=== PATIENT | female | born 1945 | race Caucasian/White ===

== ENCOUNTER 2021-02-13 09:55 | Outpatient (CLI) | payer MEDICARE, OTHER | END 2021-02-13 09:56 | disposition home or self-care (01) | LOC: CSHMAMMO 09:55 | PROVIDERS: ATTEND Family Medicine | DX: Z12.31 Encounter for screening mammogram for malignant neoplasm of breast (principal) | CPT/HCPCS: 77063; 77067 ==

== ENCOUNTER 2022-07-17 10:57 | Outpatient (CLI) | payer MEDICARE, OTHER | END 2022-07-17 10:58 | disposition home or self-care (01) | LOC: CSHMAMMO 10:57 | PROVIDERS: ATTEND Family Medicine | DX: Z12.31 Encounter for screening mammogram for malignant neoplasm of breast (principal); Z91.89 Other specified personal risk factors, not elsewhere classified | CPT/HCPCS: 77063; 77067 ==

== ENCOUNTER 2023-09-07 11:23 | Outpatient (CLI) | payer MEDICARE, OTHER | END 2023-09-07 11:24 | disposition home or self-care (01) | LOC: CSHMAMMO 11:23 | PROVIDERS: ATTEND Family Medicine | DX: Z13.820 Encounter for screening for osteoporosis (principal); Z78.0 Asymptomatic menopausal state | CPT/HCPCS: 77080 ==

== ENCOUNTER 2023-12-26 13:12 | Emergency (ER) | payer MEDICARE ==
[2023-12-26] MEDS ORDERED: traMADol HCl 50 MG TAB ONE (15:32)
[2023-12-26] MEDS ORDERED: Boostrix 0.5 ML (Tdap) VIAL (>/=7 yrs of age) ONE (18:57)
== END 2023-12-26 19:08 | disposition home or self-care (01) ==
LOC: CSHERS 13:12
DX: S82.832A Other fracture of upper and lower end of left fibula, initial encounter for closed fracture (principal); S00.03XA Contusion of scalp, initial encounter; S90.812A Abrasion, left foot, initial encounter; R40.2410 Glasgow coma scale score 13-15, unspecified time; I10 Essential (primary) hypertension; I48.91 Unspecified atrial fibrillation; E78.5 Hyperlipidemia, unspecified; Z79.899 Other long term (current) drug therapy; Z79.01 Long term (current) use of anticoagulants; W18.30XA Fall on same level, unspecified, initial encounter
CPT/HCPCS: 70450; 90471; 90715

== ENCOUNTER 2024-01-06 16:45 | Emergency (ER) | payer MEDICARE ==
[2024-01-06 17:51] LABS: #Basophils 0.1 10x3/uL (0.0-0.2); #Eosinphils 0.2 10x3/uL (0.0-0.5); #Monocytes 0.8 10x3/uL (0.0-1.1); #Neutrophils 5.6 10x3/uL (1.5-8.4); %Basophils 0.7 % (0.0-2.0); %Eosinophils 1.8 % (0.0-6.0); %Lymphocytes 21.5 % (18.0-47.0); %Monocytes 9.5 % (0.0-10.0); %Neutrophils 65.6 % (40.0-75.0); Hematocrit 37.7 % (34.9-44.5); Hemoglobin 13.2 g/dL (12.0-15.5); Mean Corpuscular Hemoglobin 35.6 pg (27.0-33.0); Mean Corpuscular Volume 101.6 fl (81.6-98.3); Mean Platelet Volume 10.9 fl (7.4-10.4); Platelet Count 364 10x3/uL (150-450); RBC Distribution Width 11.7 % (11.5-14.5); Red Blood Cell (RBC) Count 3.71 10x6/uL (3.90-5.03); White Blood Cell (WBC) Count 8.6 10x3/uL (3.5-10.5)
[2024-01-06 18:03] LABS: ALT (SGPT) 21 U/L (8-55); AST (SGOT) 25 U/L (5-34); Albumin 3.8 g/dL (3.4-4.8); Alkaline Phosphatase 64 U/L (40-110); Anion Gap 14 mmol/L (10-20); BUN (Urea Nitrogen) 27 mg/dL (9.8-20.1); Bilirubin, Total 0.6 mg/dL (0.2-1.2); Calc. Creatinine Clearance 0 mL/min (70-130); Calcium 9.5 mg/dL (7.8-10.44); Carbon Dioxide 24 mmol/L (23-31); Chloride 102 mmol/L (98-107); Estimated GFR 52; Globulin 3.1 g/dL (2.4-3.5); Glucose 111 mg/dL (83-110); Potassium 4.3 mmol/L (3.5-5.1); Protein, Total 6.9 g/dL (5.8-8.1); Sodium 136 mmol/L (136-145)
== END 2024-01-06 21:10 | disposition home or self-care (01) ==
LOC: CSHERS 16:45
DX: L89.629 Pressure ulcer of left heel, unspecified stage (principal); I10 Essential (primary) hypertension
CPT/HCPCS: 36415; 80053; 85025

== ENCOUNTER 2024-06-13 18:54 | Emergency (ER) | payer MEDICARE ==
[2024-06-13 22:35] LABS: #Basophils 0.05 10x3/uL (0.0-0.2); #Eosinphils 0.33 10x3/uL (0.0-0.5); #Monocytes 0.93 10x3/uL (0.0-1.1); #Neutrophils 4.92 10x3/uL (1.5-8.4); %Basophils 0.6 % (0.0-2.0); %Eosinophils 3.9 % (0.0-6.0); %Lymphocytes 25.6 % (18.0-47.0); %Monocytes 11.1 % (0.0-10.0); %Neutrophils 58.7 % (40.0-75.0); Hematocrit 38.3 % (34.9-44.5); Hemoglobin 12.8 g/dL (12.0-15.5); Mean Corpuscular HGB CONC 33.4 g/dL (32.0-36.0); Mean Corpuscular Hemoglobin 33.2 pg (27.0-33.0); Mean Corpuscular Volume 99.5 fL (81.6-98.3); Mean Platelet Volume 11.7 fL (7.4-10.4); Platelet Count 270 10x3/uL (150-450); RBC Distribution Width 12.9 % (11.5-14.5); Red Blood Cell (RBC) Count 3.85 10x6/uL (3.90-5.03); White Blood Cell (WBC) Count 8.4 10x3/uL (3.5-10.5)
[2024-06-13 22:40] LABS: Troponin I Less than 0.010 ng/mL (< 0.028)
== END 2024-06-13 23:58 | disposition home or self-care (01) ==
LOC: CSHERS 18:54
DX: R55 Syncope and collapse (principal); I10 Essential (primary) hypertension; I48.91 Unspecified atrial fibrillation; Z79.01 Long term (current) use of anticoagulants; Z79.899 Other long term (current) drug therapy
CPT/HCPCS: 83880; 84484; 85025; 93005; 96360

== ENCOUNTER 2024-07-05 14:11 | Outpatient (CLI) | payer MEDICARE | END 2024-07-05 14:12 | disposition home or self-care (01) | LOC: CSHMAMMO 14:11 | PROVIDERS: ATTEND Family Medicine | DX: Z12.31 Encounter for screening mammogram for malignant neoplasm of breast (principal); Z91.89 Other specified personal risk factors, not elsewhere classified | CPT/HCPCS: 77063; 77067 ==